=== PATIENT | female | born 1950 | race Caucasian/White ===

== ENCOUNTER 2018-02-22 23:40 | Emergency (ER) | payer OTHER ==
[~2018-02-22] VITALS: Ht 157.5 cm; Wt 77.1 kg
[~2018-02-22 23:40] MED LIST: PREVACID30 MG; TUSSIONEX PENNKI5 ML PO
== END 2018-02-23 00:26 | disposition home or self-care (01) ==
LOC: ER 23:40
DX: R00.2 Palpitations (principal)

== ENCOUNTER 2021-09-12 14:17 | Emergency (ER) | payer OTHER ==
[~2021-09-12] VITALS: Ht 167.6 cm; Wt 72.6 kg
== END 2021-09-12 18:44 | disposition home or self-care (01) ==
LOC: ER 14:17
DX: K62.5 Hemorrhage of anus and rectum (principal); R42 Dizziness and giddiness; Z88.8 Allergy status to other drugs, medicaments and biological substances; Z88.6 Allergy status to analgesic agent; Z88.0 Allergy status to penicillin; Z91.013 Allergy to seafood

== ENCOUNTER 2021-10-25 14:13 | Emergency (ER) | payer OTHER ==
[~2021-10-25] VITALS: Ht 157.5 cm; Wt 74.8 kg
== END 2021-10-25 18:37 | disposition home or self-care (01) ==
LOC: ER 14:13
DX: S40.011A Contusion of right shoulder, initial encounter (principal); S60.211A Contusion of right wrist, initial encounter; W18.39XA Other fall on same level, initial encounter; Y93.89 Activity, other specified; Y92.019 Unspecified place in single-family (private) house as the place of occurrence of the external cause; Y99.9 Unspecified external cause status; Z88.8 Allergy status to other drugs, medicaments and biological substances; Z88.6 Allergy status to analgesic agent; Z88.0 Allergy status to penicillin; Z91.013 Allergy to seafood

== ENCOUNTER 2022-08-11 10:37 | Outpatient (CLI) | payer OTHER | END 2022-08-11 10:42 | disposition home or self-care (01) | LOC: LAB 10:37 | PROVIDERS: ATTEND General Practice | DX: R00.2 Palpitations (principal); Z12.11 Encounter for screening for malignant neoplasm of colon; R73.9 Hyperglycemia, unspecified; K29.70 Gastritis, unspecified, without bleeding; K85.90 Acute pancreatitis without necrosis or infection, unspecified ==

== ENCOUNTER 2022-08-16 15:17 | Outpatient (CLI) | payer OTHER | END 2022-08-16 15:20 | disposition home or self-care (01) | LOC: LAB 15:17 | PROVIDERS: ATTEND General Practice | DX: R00.2 Palpitations (principal); Z12.11 Encounter for screening for malignant neoplasm of colon; R73.9 Hyperglycemia, unspecified; K29.70 Gastritis, unspecified, without bleeding; K85.90 Acute pancreatitis without necrosis or infection, unspecified ==

== ENCOUNTER 2022-12-15 16:00 | Emergency (ER) | payer OTHER ==
[~2022-12-15] VITALS: Ht 157.5 cm; Wt 74.8 kg
== END 2022-12-15 18:23 | disposition home or self-care (01) ==
LOC: ER 16:00
DX: R00.2 Palpitations (principal); Z88.6 Allergy status to analgesic agent; Z91.041 Radiographic dye allergy status; Z91.013 Allergy to seafood; Z88.0 Allergy status to penicillin

== ENCOUNTER 2023-01-02 14:23 | Emergency (ER) | payer OTHER ==
[~2023-01-02] VITALS: Ht 157.5 cm; Wt 74.4 kg
[2023-01-02] MEDS ORDERED: GAVISCON 80-141 EACH (15:03)
== END 2023-01-02 17:53 | disposition home or self-care (01) ==
LOC: ER 14:23
DX: K62.5 Hemorrhage of anus and rectum (principal); A08.8 Other specified intestinal infections; Z88.0 Allergy status to penicillin; Z88.6 Allergy status to analgesic agent; Z91.041 Radiographic dye allergy status; Z91.013 Allergy to seafood; Z88.8 Allergy status to other drugs, medicaments and biological substances

== ENCOUNTER 2023-02-07 09:06 | Emergency (ER) | payer OTHER ==
[~2023-02-07] VITALS: Ht 157.5 cm; Wt 74.4 kg
[~2023-02-07 09:06] MED LIST changes: +GAVISCON 80-141 EACH
[2023-02-07] MEDS ORDERED: GAVISCON LIQUI355 ML (09:20)
== END 2023-02-07 12:19 | disposition home or self-care (01) ==
LOC: ER 09:06
DX: K29.90 Gastroduodenitis, unspecified, without bleeding (principal); R10.9 Unspecified abdominal pain; J45.909 Unspecified asthma, uncomplicated; M32.8 Other forms of systemic lupus erythematosus; Z88.0 Allergy status to penicillin; Z91.041 Radiographic dye allergy status; Z88.6 Allergy status to analgesic agent; K29.50 Unspecified chronic gastritis without bleeding; Z91.013 Allergy to seafood
CPT/HCPCS: 36415; 74019; 93005; 96365; 99284; J2405; J2765

== ENCOUNTER 2024-08-01 11:55 | Outpatient (CLI) | payer OTHER ==
[~2024-08-01 11:55] MED LIST changes: +GAVISCON LIQUI355 ML
[2024-08-01 12:31] LABS: HEMATOCRIT 41.6 % (36.0-45.00); HEMOGLOBIN 13.9 g/dL (12.0-15.00); MEAN CORPUSCULAR HEMOGLOBIN 30.4 pg (27.00-32.0); MEAN CORPUSCULAR HGB CONC 33.4 g/dl (32.0-36.0); PLATELET COUNT 180 K/uL (150-450); RED BLOOD COUNT 4.57 M/uL (4.00-6.00); RED CELL DISTRIBUTION WIDTH 12.9 % (11.5-14.5)
[2024-08-01 12:32] LABS: PH,URINE 5.5 (5.0-8.0); URINE APPEARANCE Clear; URINE BACTERIA 68.4 uL (0.0-1933); URINE BILIRRUBIN Negative (NEGATIVE); URINE BLOOD Negative; URINE COLOR Yellow; URINE EPITHELIAL CELLS 16.4 uL (0.0-38.8); URINE GLUCOSE Negative (NEGATIVE); URINE KETONE Negative (NEGATIVE); URINE LEUKOCYTE Small; URINE NITRATE Negative; URINE PROTEIN Negative (NEGATIVE); URINE RBC 2.7 uL (0.0-20.8); URINE UROBILINOGEN 0.2 E.U./dl; URINE WBC 20.1 uL (0.0-23.2)
[2024-08-01 14:08] LABS: ALBUMIN 3.7 gm/dL (3.4-5.0); BILIRUBIN TOTAL 0.49 mg/dL (0.3-1.2); CALCIUM 9.5 mg/dL (8.5-10.1); CHOL HDL RATIO 3.9 (0-5.0); CREATININE SERUM 0.63 mg/dL (0.55-1.02); GFR 91.88; GLOBULINA 3.5 G/DL (2.4-3.5); POTASSIUM 4.76 mEq/L (3.5-5.1); TOTAL PROTEIN 7.2 gm/dL (6.4-8.2); TSH 2.42 uIU/mL (0.358-3.74)
== END 2024-08-01 11:56 | disposition home or self-care (01) ==
LOC: LAB 11:55
PROVIDERS: ATTEND Internal Medicine Hematology & Oncology
DX: D64.9 Anemia, unspecified (principal); E78.00 Pure hypercholesterolemia, unspecified; E03.8 Other specified hypothyroidism; N39.0 Urinary tract infection, site not specified; D68.62 Lupus anticoagulant syndrome